=== PATIENT | male | born 1960 | race Caucasian/White ===

== ENCOUNTER → 2017-12-01 | Outpatient (CLI) | payer BC ==
[~2017-12-01] MED LIST: ALLOPURINOL300 MG PO; SLO-NIACIN500 MG PO
== END ==
LOC: COL.RAD 10:25
DX: D69.6 Thrombocytopenia, unspecified (principal); K76.0 Fatty (change of) liver, not elsewhere classified

== ENCOUNTER → 2018-02-19 | Outpatient (CLI) | payer BC | LOC: COL.RAD 14:22 | DX: K76.0 Fatty (change of) liver, not elsewhere classified (principal); N13.2 Hydronephrosis with renal and ureteral calculous obstruction; Z90.49 Acquired absence of other specified parts of digestive tract | CPT/HCPCS: Q9967 ==

== ENCOUNTER 2018-03-05 14:18 | Day surgery (SDC) | payer BC ==
[~2018-03-05] VITALS: Ht 180.3 cm; Wt 112.4 kg
[2018-03-05] VITALS (7 sets, daily range): BP systolic 135–157; BP diastolic 80–90; PULSE 82–89; TEMP 97.9–98.5
[2018-03-05] MEDS ORDERED: DESYREL 100MG100 MG PO (15:27)
[2018-03-05] MEDS ORDERED: COZAAR 50MG50 MG/TAB PO (15:28)
[2018-03-05] MEDS ORDERED: LOFIBRA200 MG PO (15:28)
[2018-03-05] MEDS ORDERED: PERCOCET 325 MG1 TA2 PO (15:29)
[2018-03-05] MEDS ORDERED: FLOMAX 0.40.4 MG/CAP PO (15:29)
[2018-03-05] MEDS ORDERED: DEPO-TESTOS200 MG/M1 IM (15:31)
--- NOTE | 2018-03-05 15:32 | NUR ---
TO RM AT 1450- CALL LIGHT IN REACH AT BEDSIDE.
--- NOTE | 2018-03-05 20:45 | NUR ---
Patient up to room from OR by steacher. Drowsy and oriented x3. Vital signs stable. in room. Post op fluids infusing via gravity to right AC. Vital signs stable. Denies pain or further needs at this time.
--- NOTE | 2018-03-05 23:00 | NUR ---
Patient eating and drinking without complaints of N/V. Voided 250 ml of blood tinged urine. Continues to deny pain. Patient states that he feels he is ready to head home. Discharge instructions provided to patient. Educated patient on signs and symptoms of infection and when to call provider. IV to left AC discontinued, tip intact, patient tolerated the procedure well. Continues to deny pain. Patient escorted out by wheelchair by surgical staff.
== END 2018-03-05 23:00 ==
LOC: SDCO 14:18 → SURG 20:45 → SDCO 23:00
DX: N20.1 Calculus of ureter (principal); M10.9 Gout, unspecified; E78.00 Pure hypercholesterolemia, unspecified; E78.5 Hyperlipidemia, unspecified; I10 Essential (primary) hypertension; E23.0 Hypopituitarism; G47.33 Obstructive sleep apnea (adult) (pediatric); R73.03 Prediabetes; Z90.49 Acquired absence of other specified parts of digestive tract; Z80.42 Family history of malignant neoplasm of prostate
CPT/HCPCS: OP; C1726; C1769; C2617; J0690; J1100; J1170; J2405; J2704; J3010; J7120; Q9967

== ENCOUNTER → 2019-11-29 | Outpatient (CLI) | payer BC ==
[~2019-11-29] MED LIST changes: +COZAAR 50MG50 MG/TAB PO; +DEPO-TESTOS200 MG/M1 IM; +DESYREL 100MG100 MG PO; +FLOMAX 0.40.4 MG/CAP PO; +LOFIBRA200 MG PO; +PERCOCET 325 MG1 TA2 PO
== END ==
LOC: ZCOL.LAB 16:34
DX: Z20.828 Contact with and (suspected) exposure to other viral communicable diseases (principal)